=== PATIENT | male | born 1985 | race Caucasian/White ===

== ENCOUNTER 2024-07-27 00:17 | Emergency (ER) | payer OTHER, SELFPAY ==
[2024-07-27 01:01] VITALS: BP 111/91
--- NOTE | 2024-07-27 01:08 | EDRN ---
Pt. was extremely apprehensive on initial presentation to ED, pt. is extremely paranoid and relates this to his last involuntary commitment. Pt. initially refused to walk into crisis room; however, after speaking w/ staff, pt. voluntarily placed
self in crisis rm. 2, w/ request to leave door open. Crisis currently at bedside speaking w/ pt.
--- NOTE | 2024-07-27 01:14 | ED.GENMED ---
History of Present Illness
General
Chief Complaint: Psychiatric Problem
Source: patient, family and police
Time Seen by Provider: 07/27/24 01:14
Nursing documentation reviewed up to this point in time: agreed with
History of Present Illness
History of Present Illness:
Patient brought in by police and his [id number] for having acute manic episode. Patient does have a history of bipolar disorder and anxiety. According to the 302 filled out by family patient has been acting erratically. He exhibited this
behavior when police arrived at his home. He did not want to go with police. He instead came with his father and. Patient has been exhibiting signs of paranoia. He states that he was 302 in the past and it was not a good experience for him. He
openly wants to cooperate.
Phy Exam
General Physical Exam
General Presentation: moderate distress and severe distress
General age: appears stated age
General Skin: warm and dry
General Habitus: normal
General Mental: angry, anxious and confused
General Hydration: appears well hydrated
General Chronic Disability: contractures
ENT Exam
ENT Exam: EOMI, pharynx normal, neck supple and normocephalic
Eye Exam
Eye Exam: PERRL, cornea clear and conjunctiva normal
Cardiovascular Exam
Cardiovascular Exam: regular rate/rhythm, no edema, no murmur and normal peripheral pulses
Pulmonary Exam
Pulmonary Exam: lungs clear, no respiratory distress, no rales, no crackles, no rhonchi, no stridor, no wheezing and no cough
Gastrointestinal Exam
Gastrointestinal Exam: normal bowel sounds, non tender, soft, no organomegaly, no pulsatile mass and non distended
Neurological Exam
Neurological Exam: alert, oriented x3, no motor deficits and speech normal
Musculoskeletal Exam
Musculoskeletal Exam: full ROM and no edema
Skin Exam
Skin Exam: normal color, warm/dry, no rash and no petechia
Psychiatric Exam
Psychiatric Exam: agitated, anxious, delusions and paranoia
Course
Orders/Labs/Results
Orders:
Orders
07/27/24 01:15
Alprazolam [Xanax] 0.25 mg PO NOW STA
07/27/24 02:55
Crisis Consult Urgent
Reason for Consult: irratic behavior
07/27/24 03:56
Alprazolam [Xanax] 0.5 mg PO NOW STA
07/27/24 07:03
PSYCHIATRY CONSULT Urgent
Consulting Provider: Luis Hatfield
Was physician already notified: Yes
Vital Signs
Initial and Last Documented VS:
Initial Vital Signs
Temp Pulse Resp BP Pulse Ox
98.8 F 105 16 111/91 98
07/27/24 01:01 07/27/24 01:01 07/27/24 01:01 07/27/24 01:01 07/27/24 01:01
Last Documented Vital Signs
Temp Pulse Resp BP Pulse Ox
97.8 F 84 18 154/98 99
07/27/24 07:51 07/27/24 07:51 07/27/24 07:51 07/27/24 07:51 07/27/24 07:51
*Critical Care Note
Total Time (30-74mins, 75-104mins- exclusive of procedures): Critical care statement: (Critical care statement: A total of 45 minutes of critical care time was provided for this patient. This time is separate from time utilized to perform the
aforementioned documented procedures. Aggregate critical care time includes only time during which I was engaged in work directl)
Update Note
Update Note:
Patient accepted at [facility]. Anticipated discharge is 9 AM.
ED Attending Note
-
Portions of this chart may have been created with voice recognition software.� Occasional wrong word or��sound alike� substitutions may have occurred due to the inherent limitations of voice recognition software.
Discharge Plan
Departure
Patient Disposition: Psych Facility
Date of Disposition: 07/27/24
Time of Disposition: 03:41
Patient Status:: 302
Discharge Problem:
Gretchen, Acute paranoia
Referrals:
UNKNOWN - PT DOES,NOT KNOW [Family Provider] -
Interventions
Interventions:
*Risk Screen - Suicide Last Done: 07/27/24 01:45
*General Assessment Last Done: 07/27/24 01:01
*Neglect/Abuse Screening Last Done: 07/27/24 01:01
*ED COVID-19 Vaccine History Last Done: 07/27/24 01:01
*Nursing Disposition Last Done: 07/27/24 10:11
ED-Psychological Assessment Last Done: 07/27/24 01:07
Discharge Date and Time
Discharge Date/Time: 07/27/24 10:11
Print Language: SALVADOREAN
[2024-07-27] MEDS: XANAX 0.25 MG PO ×2 (01:15→04:20)
--- NOTE | 2024-07-27 02:49 | EDRN ---
RN attempted multiple times to place pt. in paper scrubs, pt. continues to refuse.
--- NOTE | 2024-07-27 04:30 | EDRN ---
RN attempted once again, w/ charge nurse's assistance, to have pt. change into paper scrubs for safety. Pt. is cooperative, yet fixated on specific issues, such as the exact timing of when the psychiatrist will see him in the morning. Pt. updated on
plan of care, pt. finally walked into bathroom, changed into paper scrubs and gave his own belongings to security. Pt. was then requesting medication to help him sleep, when RN brought in ordered 0.5 mg Xanax, pt. refused, stating 'I am prescribed
0.25 mg of Xanax! No one listens to me! I'm only taking 0.25 mg of Xanax!'. Dr. Carmichael aware and okay w/ RN administering half of the ordered medication, as this is all the pt. agrees to.
[2024-07-27 07:51] VITALS: BP 154/98
== END 2024-07-27 10:11 ==
LOC: EMR 00:17
PROVIDERS: CONSULT PHYSICIAN Psychiatry & Neurology Psychiatry; EMERGENCY PHYSICIAN Student in an Organized Health Care Education/Training Program
DX: F30.9 Manic episode, unspecified (principal); F22 Delusional disorders; Z65.3 Problems related to other legal circumstances
CPT/HCPCS: 99285

== ENCOUNTER → 2025-02-21 12:52 | Outpatient (REF) | payer OTHER, SELFPAY | LOC: HWRAD 12:52 | PROVIDERS: ATTENDING PHYSICIAN Nurse Practitioner Family | DX: M54.2 Cervicalgia (principal) | CPT/HCPCS: 72050 ==